=== PATIENT | female | born 1975 | race African-American/Black ===

== ENCOUNTER 2016-07-23 14:13 | Inpatient (IN) ==
[~2016-07-23 14:13] MED LIST: Famotidine 20 MG/2 ML VIAL IVP PRN; Metoclopramide 10 MG/2 ML VIAL IVP PRN; Naloxone 0.4 MG/ML INJ IVP PRN
[2016-07-23] MEDS ORDERED: Ringers Solution, Lactated 1,000 ML IVC SCH (14:15)
[2016-07-23 14:50] LABS: Basophils % 0.1 %; Eosinophils % 0.2 %; Hematocrit 35.9 % (35.3-44.9); Hemoglobin 11.4 g/dL (11.5-15.4); Immature Granulocytes % 0.9 % (0-4); Lymphocytes # 1.7 K/mcL (0.6-4.6); Lymphocytes % 12.6 %; Mean Corpuscular HGB Conc 31.8 g/dL (31.6-35.5); Mean Corpuscular Hemoglobin 28.9 pg (28.0-33.3); Mean Corpuscular Volume 91.1 fL (83.0-100.0); Mean Platelet Volume 10.9 fL (9.4-12.4); Monocytes # 0.8 K/mcL (0.0-1.3); Monocytes % 5.8 %; Platelet Count 147 K/mcL (140-400); Red Blood Count 3.94 M/mcL (3.82-4.97); Red Cell Distribution Width 13.9 % (11.5-14.5); Segmented Neutrophils % 80.4 %
[2016-07-23 14:54] LABS: Creatinine,Urine 38 mg/dL
[2016-07-23 15:00] LABS: Alanine Aminotransferase 9 Units/L (0-55); Aspartate Amino Transferase 17 Units/L (5-34); BUN/Creatinine Ratio 14 (6-26); Blood Urea Nitrogen 10 mg/dL (7-20); Lactate Dehydrogenase 172 Units/L (159-327); Uric Acid 5.7 mg/dL (2.6-6.0); eGFR For African Americans > 60 (> 60); eGFR For Non-African Americans > 60 (> 60)
[2016-07-23 15:05] LABS: Protein/Creatinine Ratio,Urine < 0.18 mg/mg (0-0.20)
[2016-07-23] MEDS ORDERED: Ringers Solution, Lactated 500 ML IVC ONE (15:21)
--- NOTE | 2016-07-23 15:25 | OB/GYN History & Physical ---
Date of Encounter: 07/23/16 Time of Encounter: 15:21 Assessment and Plan (1) Non-reactive NST (non-stress test) Current visit: Yes Status: Acute Admission to labor and delivery for induction of labor due to BPP 4/10 GBS - Vibroacoustic Stim for absent variability 500 mL fluid bolus of LR followed by D5 LR at 125 an hour Discussed patient with Dr. Alfredo Fuentes in to see patient after office, possible AROM, possible cervical Haile insertion Patient to remain nothing by mouth at this time Anesthesia consult Continuous monitoring (2) 37 weeks gestation of Current visit: Yes Status: Acute (3) Polyhydramnios affecting in third trimester Current visit: Yes Status: Acute BROOKE 26 on ultrasound today History of Present Illness Chief complaint: non-reactive NST, BPP 4/10 HPI: Ms. Hernandez is a 40 year old female 37 weeks 3 days gestation here for extended evaluation following a nonreactive NST, BPP 4/10 at today. She reports good movement and denies vaginal bleeding, contractions or leaking of fluid prior to admission. Pt states she has now started to feel some contractions while being admitted. Patient also denies headache, visual changes ,epigastric, or right upper quadrant pain. Labs: Blood type A+. GBS -, rubella immune, Hep B -, HIV - , varicella immune. Not a cystic fibrosis carrier. is + for sickle cell trait. Past Med Surg Social Fam HX - Past Medical History Medical history: no medical history Psychiatric history: no psych history - Past Surgical History Surgical History: no surgical history - Social History Smoking Status: Never smoker Smokeless Tobacco Status: No Alcohol use: none Drug use: none - Family History Mother Living Status: Hx Family Endocrine Disorder: Yes (DM) Obstetrical History - Pregnancies : 3 Para: 2 Term: 2 : 0 Ab's: 0 Livin Medications and Allergies Ferrous Sulfate [Iron] 1 tab PO DAILY 07/23/16 [History] Loratadine [Claritin] 1 tab PO DAILY 07/23/16 [History] Vit/Iron Fumarate/FA [ Tablet] 1 tab PO DAILY 07/23/16 [History ] Allergies No Known Allergies Allergy (Verified 07/23/16 14:24) Review of System OB - Constitutional Constitutional ROS IM: no headache(s) - Eyes Eyes: bilateral: blurred vision (denies) - Gastrointestinal Gastrointestinal: nausea (chronic throughout ) - Genitourinary Genitourinary: no abnormal vaginal bleeding, no vaginal discharge Exam - Constitutional Constitutional: well developed, well nourished, no acute distress - HEENT HEENT: Normocephaly, Mucus Membranes Moist - Neck Neck exam: supple - Lungs Respiratory exam: CTAB - Cardiovascular Cardiovascular exam: RRR, +S1, +S2 - Abdomen Abdomen: Present: gravid Results Result Diagrams: 07/23/16 14:34 07/23/16 14:34 Abnormal lab results WBC 13.7 K/mcL (4.3-11.1) H 07/23/16 14:34 Hgb 11.4 g/dL (11.5-15.4) L 07/23/16 14:34 Neutrophils # 11.0 K/mcL (1.6-8.9) H 07/23/16 14:34 All other labs normal. - VTE Reasons for not Prescribing Prophylaxis: Treatment not Indicated - Low risk for VTE
[2016-07-23] MEDS ORDERED: D5% in Lactated Ringers 1,000 ML IVC SCH (15:45)
[2016-07-23] MEDS ORDERED: *HR* Morphine Sulfate/PF 5 MG/10 ML AMPUL ONE (17:32)
[2016-07-23] MEDS ORDERED: EPHEDrine 50 MG/ML VIAL ONE (17:34)
[2016-07-23] MEDS ORDERED: *HR* Oxytocin 10 UNIT/ML VIAL IM ONE (17:36)
--- NOTE | 2016-07-23 18:01 | Anesthesia Evaluation PreOp ---
Date of Encounter: 07/23/16 Time of Encounter: 17:59 - Past History Planned Operation: Cardiac History: Denies any Significant Hx Pulmonary History: Denies Any Significant HX QUALITY COMPLIANCE CONSULTANT History: Denies Any Significant HX Other Medical History: GERD Anesthesia History: Past Anesthesia (no prior general anesthesia) : Yes (, IUP 37+ 3) Alcohol Use: none Drug use: none Medications and Allergies Ferrous Sulfate [Iron] 1 tab PO DAILY 07/23/16 [History] Loratadine [Claritin] 1 tab PO DAILY 07/23/16 [History] Vit/Iron Fumarate/FA [ Tablet] 1 tab PO DAILY 07/23/16 [History ] Allergies No Known Allergies Allergy (Verified 07/23/16 14:24) - Meds/Allergy Pre-op Review Medications Reviewed: Yes Allergies Reviewed: Yes Beta Blockers on Current Med List: No Anesthesia Results - Labs 07/23/16 14:34 07/23/16 14:34 Anesthesia Exam 3 Temp 98.0 BP 115/65 Pulse 72 Resp 18 Height: 5'5''/1.65 m Weight: 229 lbs/103.873 kg NPO (# of Hours): 8 Pain Scale: 0 Pain Scale Used: Numeric (1 - 10) - HEENT Pupil (Motor): EOMI Mallampati: III Teeth: Normal Oral Opening: Greater than 3 - QUALITY COMPLIANCE CONSULTANT LOC: Oriented QUALITY COMPLIANCE CONSULTANT Motor: Normal RUE, Normal LUE, Normal RLE, Normal LLE, Normal Face QUALITY COMPLIANCE CONSULTANT Sensory: Normal: RUE, LUE, RLE, LLE, Face - Cardiac Rhythm: Regular Murmur: None - Pulmonary Breath Sounds: bilateral Clear Respiratory Effort: Symmetrical Anesthesia Assess/Plan ASA Score: 2 Modified Sean Scale for Level of Consciousness: Cooperative, oriented, and tranquil Anesthetic Plan: Regional Monitoring Plan: Standard Monitors Recovery Plan: PACU
[2016-07-23] MEDS ORDERED: Ringers Solution, Lactated 1,000 ML ONE (18:29)
--- NOTE | 2016-07-23 19:09 | OB/GYN Procedure Note ---
Section - Date of procedure: 07/23/16 Preop diagnosis: category 2 FHT tracing Post-op diagnosis: same Procedure: section, primary low transverse Surgeon: Annabelle Fuentes Estimated blood loss (cc): 550 Anesthesiologist: Earl Wilcox Panman: Shay Stone Anesthesia Type: Spinal section complications: none Disposition: L&D Recovery Room - (s) Infant A Delivery Date: 07/23/16 Delivery Time: 18:30 Presentation: vertex Position: OP Gender: Female Viability: Viable Pounds: 6 Ounces: 10 Gram Weight: 3.005 kg at 1 minute: 8 at 5 minutes: 9 Placenta: spontaneous Cord: nuchal cord, 3 umbilical vessels - Narrative Narrative: Patient was taken to the operative suite and placed under spinal anesthetic. She was then prepped and draped in normal sterile fashion in the dorsal supine position. Timeout was then performed. Antibiotics were given at room time. SCDs are on and active. Pfannenstiel skin incision is then made and carried through to underlying layer of fascia with the Bovie. The fascia was then incised in the midline and incision extended laterally with the Porter scissors. The fascia was tented up and dissected off the rectus muscles sharply. The rectus muscles were in the midline and the peritoneum was tented up and entered sharply with the Metzenbaum scissors. The peritoneal incision was then extended bluntly. The bladder blade was then inserted.. A low transverse uterine incision was then made. The infant vertex was brought to the incision and the infant was delivered using fundal pressure. There was a loose nuchal cord. Cord was clamped and cut. Infant was handed to waiting nursery staff. Placenta delivered spontaneously complete and intact with a three-vessel cord. The uterus was cleared of all clots and debris using moist laparotomy sponge. The uterine incision was then closed using 0 Vicryl in a running locked fashion. A second layer of the same suture was used to obtain excellent hemostasis. The abdomen was then cleared of all clots and debris using copious irrigation. The fascial incision was then closed using 0 Vicryl in a running fashion. The skin was closed using 4-0 Vicryl in a subcuticular fashion. Steri- Strips and sterile dressing are then placed. Mother and taken to recovery in stable condition.
[2016-07-23] MEDS ORDERED: Acetaminophen IV 1,000 MG/100 ML INFUS..BTL IVPB ONE (19:10)
[2016-07-23] MEDS ORDERED: Oxytocin 20 units/ LR 1000 mL 20 UNIT/1,000 ML BAG IVC ONE (20:15)
[2016-07-23] MEDS ORDERED: *HR* Morphine 2 MG/ML SYRINGE IVP PRN (21:38)
[2016-07-23] MEDS ORDERED: Metoclopramide 10 MG/2 ML VIAL IVP PRN (21:38)
[2016-07-23] MEDS ORDERED: Naloxone 0.4 MG/ML INJ IVP PRN (21:38)
[2016-07-23] MEDS ORDERED: Sennosides 8.6 MG TABLET PO PRN (21:38)
[2016-07-23] MEDS ORDERED: *HR* OxyCODONE/APAP 5/325 TABLET PO PRN ×2 (21:38)
[2016-07-23] MEDS ORDERED: Ibuprofen 400 MG TABLET PO PRN (21:38)
[2016-07-23] MEDS ORDERED: *HR* HYDROmorphone (PF) 1 MG/ML SYRINGE IVP PRN (21:38)
[2016-07-23] MEDS ORDERED: Ondansetron 4 MG/2 ML VIAL IVP PRN ×2 (21:38)
[2016-07-23] MEDS ORDERED: Simethicone 80 MG TAB.CHEW PO PRN (21:38)
[2016-07-24] MEDS ORDERED: *HR* Phenylephrine 10 MG/ML VIAL ONE (03:01)
--- NOTE | 2016-07-24 03:21 | Anesthesia Evaluation Post Op ---
Date of Encounter: 07/24/16 Time of Encounter: 21:45 - Vital Signs Vital Signs: 3 Vital Signs Time 2145 BP 102/60 Pulse 66 Resp 16 O2 Sat 98 - Lungs Lungs: Clear Ascult./Percussion - Airway Airway: Non-obstructed - Cardiovascular Regular Rate - Mental Status Mental Status: Alert & Oriented, Answers Appropriately - Pain Pain Scale: 0 Pain Scale used: Numeric (1 - 10) - Nausea Vomiting Nausea Vomiting: Not Present - Hydration Hydration: NPO, Haile catheter - Discharge PostOp Status: Transfer Patient to floor
[2016-07-24 03:51] LABS: Basophils % 0.2 %; Hematocrit 32.1 % (35.3-44.9); Hemoglobin 10.4 g/dL (11.5-15.4); Immature Granulocytes % 0.6 % (0-4); Immature Platelets 5.2 % (1.1-6.1); Lymphocytes # 1.1 K/mcL (0.6-4.6); Lymphocytes % 6.5 %; Mean Corpuscular HGB Conc 32.4 g/dL (31.6-35.5); Mean Corpuscular Hemoglobin 29.7 pg (28.0-33.3); Mean Corpuscular Volume 91.7 fL (83.0-100.0); Mean Platelet Volume 11.2 fL (9.4-12.4); Monocytes # 0.9 K/mcL (0.0-1.3); Monocytes % 5.3 %; Neutrophils # 15.2 K/mcL (1.6-8.9); Platelet Count 133 K/mcL (140-400); Red Cell Distribution Width 14.1 % (11.5-14.5); Segmented Neutrophils % 87.4 %
[2016-07-24] MEDS ORDERED: Oxytocin 20 units/ LR 1000 mL 20 UNIT/1,000 ML BAG IVC ONE (05:49)
--- NOTE | 2016-07-24 07:57 | OB/GYN Progress Note ---
Date of Encounter: 07/24/16 Time of Encounter: 07:55 - Assessment and Plan (1) delivery delivered Current Visit: Yes Status: Acute Routine Postop care. Encouraged ambulation. Advance diet as tolerated. Subjective - Subjective Principal diagnosis: POD #1 section Interval history: Patient reports mild vomiting over night. Tolerating ice chips now. No complaints. Patient reports: pain well controlled, no nauseated [place]: doing well Objective - Vital Signs Latest vital signs: Vital Signs Temp Pulse Resp BP Pulse Ox 07/24/16 04:55 97.6 F 62 18 91/56 96 07/24/16 01:45 97.9 F 68 16 97/58 96 07/24/16 00:45 97.9 F 64 16 106/67 96 07/23/16 23:40 97.7 F 70 16 93/59 97 07/23/16 22:45 97.9 F 68 16 97/58 96 07/23/16 22:15 97.9 F 76 14 112/69 97 07/23/16 21:45 97.7 F 75 16 105/65 97 Intake and Output 07/23/16 07/23/16 07/24/16 15:59 23:59 07:59 Output Total 750 / 750 820 / 820 Balance -750 / -750 -820 / -820 Output: Urine 200 / 200 220 / 220 Urethral (Haile) 200 / 200 220 / 220 Emesis 400 / 400 Estimated Blood Loss 550 / 550 Catheter 200 / 200 Other: Weight 103.873 kg - Exam Lungs: bilateral: normal Chest: Normal S1, Normal S2 Extremities: Present: normal Abdomen: Present: normal appearance, soft. Absent: distention, tenderness Incision: Present: dressed Uterus: Present: normal, firm - Labs Labs: Laboratory Results - last 24 hr 07/23/16 07/23/16 07/23/16 14:34 14:34 14:34 WBC 13.7 H RBC 3.94 Hgb 11.4 L Hct 35.9 MCV 91.1 MCH 28.9 MCHC 31.8 RDW 13.9 Plt Count 147 MPV 10.9 Immature Gran % 0.9 Seg Neutrophils % 80.4 Lymphocytes % 12.6 Monocytes % 5.8 Eosinophils % 0.2 Basophils % 0.1 Neutrophils # 11.0 H Lymphocytes # 1.7 Monocytes # 0.8 Eosinophils # 0.0 Basophils # 0.0 Immature Plt Fraction BUN 10 Creatinine 0.74 Est GFR ( Amer) > 60 Est GFR (Non-Af Amer) > 60 BUN/Creatinine Ratio 14 Uric Acid 5.7 AST 17 ALT 9 Lactate Dehydrogenase 172 Urine Creatinine 38 Protein/Creatinin Ratio < 0.18 Urine Total Protein < 7 07/24/16 03:27 WBC 17.3 H RBC 3.50 L Hgb 10.4 L Hct 32.1 L MCV 91.7 MCH 29.7 MCHC 32.4 RDW 14.1 Plt Count 133 L MPV 11.2 Immature Gran % 0.6 Seg Neutrophils % 87.4 Lymphocytes % 6.5 Monocytes % 5.3 Eosinophils % 0.0 Basophils % 0.2 Neutrophils # 15.2 H Lymphocytes # 1.1 Monocytes # 0.9 Eosinophils # 0.0 Basophils # 0.0 Immature Plt Fraction 5.2 BUN Creatinine Est GFR ( Amer) Est GFR (Non-Af Amer) BUN/Creatinine Ratio Uric Acid AST ALT Lactate Dehydrogenase Urine Creatinine Protein/Creatinin Ratio Urine Total Protein
[2016-07-24] MEDS ORDERED: Prenatal Vit/FA 1 EACH TABLET PO SCH (09:00)
[2016-07-24] MEDS: Ibuprofen 600 MG TABLET PO PRN ×2 (09:46→18:57)
--- NOTE | 2016-07-24 17:38 | Discharge Summary ---
Date of Encounter: 07/24/16 Time of Encounter: 17:30 - Discharge Diagnosis (1) delivery delivered Priority: Primary Status: Acute Comments: Routine postop care. Sent home on pain medication to take PRN. Ibuprofen q 6H scheduled. - Discharge Medications Prescriptions: OxyCODONE/APAP 5/325 [Percocet 5/325 MG] 1 each PO Q4HR PRN #20 tablet PRN Reason: Moderate pain 4-6 Ibuprofen [Motrin] 600 mg PO Q6HR PRN #90 tablet PRN Reason: Cramping Home Medications: Ferrous Sulfate [Iron] 1 tab PO DAILY 07/23/16 [History] Loratadine [Claritin] 1 tab PO DAILY 07/23/16 [History] Vit/Iron Fumarate/FA [ Tablet] 1 tab PO DAILY 07/23/16 [History ] Ibuprofen [Motrin] 600 mg PO Q6HR PRN #90 tablet 07/24/16 [Rx] OxyCODONE/APAP 5/325 [Percocet 5/325 MG] 1 each PO Q4HR PRN #20 tablet 07/24/16 [Rx] Allergies/Adverse Reactions: Allergies No Known Allergies Allergy (Verified 07/23/16 14:24) Data Procedures and tests throughout hospitalization: Laboratory Tests 07/23/16 07/23/16 07/23/16 14:34 14:34 14:34 WBC 13.7 H RBC 3.94 Hgb 11.4 L Hct 35.9 MCV 91.1 MCH 28.9 MCHC 31.8 RDW 13.9 Plt Count 147 MPV 10.9 Immature Gran % 0.9 Seg Neutrophils % 80.4 Lymphocytes % 12.6 Monocytes % 5.8 Eosinophils % 0.2 Basophils % 0.1 Neutrophils # 11.0 H Lymphocytes # 1.7 Monocytes # 0.8 Eosinophils # 0.0 Basophils # 0.0 Immature Plt Fraction BUN 10 Creatinine 0.74 Est GFR ( Amer) > 60 Est GFR (Non-Af Amer) > 60 BUN/Creatinine Ratio 14 Uric Acid 5.7 AST 17 ALT 9 Lactate Dehydrogenase 172 Urine Creatinine 38 Protein/Creatinin Ratio < 0.18 Urine Total Protein < 7 07/24/16 03:27 WBC 17.3 H RBC 3.50 L Hgb 10.4 L Hct 32.1 L MCV 91.7 MCH 29.7 MCHC 32.4 RDW 14.1 Plt Count 133 L MPV 11.2 Immature Gran % 0.6 Seg Neutrophils % 87.4 Lymphocytes % 6.5 Monocytes % 5.3 Eosinophils % 0.0 Basophils % 0.2 Neutrophils # 15.2 H Lymphocytes # 1.1 Monocytes # 0.9 Eosinophils # 0.0 Basophils # 0.0 Immature Plt Fraction 5.2 BUN Creatinine Est GFR ( Amer) Est GFR (Non-Af Amer) BUN/Creatinine Ratio Uric Acid AST ALT Lactate Dehydrogenase Urine Creatinine Protein/Creatinin Ratio Urine Total Protein Labs on day of discharge: Labs from last 24 hours 07/24/16 03:27 WBC 17.3 H RBC 3.50 L Hgb 10.4 L Hct 32.1 L MCV 91.7 MCH 29.7 MCHC 32.4 RDW 14.1 Plt Count 133 L MPV 11.2 Immature Gran % 0.6 Seg Neutrophils % 87.4 Lymphocytes % 6.5 Monocytes % 5.3 Eosinophils % 0.0 Basophils % 0.2 Neutrophils # 15.2 H Lymphocytes # 1.1 Monocytes # 0.9 Eosinophils # 0.0 Basophils # 0.0 Immature Plt Fraction 5.2 Date of admission: 07/23/16 14:13 Primary care physician: PCP TERESITA Discharging clinician: Annabelle Fuentes Anticipated date of discharge: 07/24/16 - Patient Status Disposition: Home, Self-Care Condition: Good Functional capacity at discharge: independent ambulation Overall status at discharge: patient is progressing back to baseline - Discharge Instructions Follow Up With: TERESITA,PCP [Primary Care Provider] - Annabelle Fuentes DO [Partnered Physician] - - Diet and Activity Activity: increase activity as tolerated Diet: advance to your usual diet Hospital Course Reason for admission: IUP at term, other (non-reassuring well being BPP 4/ 10) Delivery: section complications: none Discharge diagnosis: IUP at term delivered baby: female Hospital course: Patient was sent to labor and delivery from the office for non-reassuring well being, BPP 4/10. Upon arrival she was placed on monitor for extended monitoring with IV bolus, maternal positioning. The FHT's continued with minimal variability. Decision was made to proceed with section. Details of the procedure can be found in the operative note. Post operatively she recovered well. Tolerating PO diet and ambulating without difficulty. She requested discharge home at 24 hours with baby. Time Attestation: Total time spent providing and/or coordinating discharge services: Time Spent: Less than 30 minutes - VTE Reasons for not Prescribing Prophylaxis: Treatment not Indicated - Low risk for VTE Documentation of Mechanical Device: Intermittent pneumatic compression device Exam - Constitutional Vitals: Temp Pulse Resp BP Pulse Ox 97.9 F 60 16 107/67 98 07/24/16 12:25 07/24/16 12:25 07/24/16 12:25 07/24/16 12:25 07/24/16 12:25
[2016-07-24 18:10] VITALS: BP 106/67
== END 2016-07-24 20:15 | disposition home or self-care (01) | DRG 765 ==
LOC: 1NENULAB → 1NENUOBS 21:55
PROVIDERS: ADMIT Obstetrics & Gynecology; ATTEND Obstetrics & Gynecology